=== PATIENT | female | born 1995 | race Caucasian/White ===

== ENCOUNTER 2023-04-23 19:53 | Inpatient (IN) ==
[2023-04-23] MEDS ORDERED: LIDOCAINE 1% LOCAL 20 ML VIAL INFIL PRN (20:51)
[2023-04-23] MEDS ORDERED: OXYTOCIN 30 UNITS/NSS 30 UNITS/500 ML BAG IV PRN ×2 (20:51→23:12)
[2023-04-23] MEDS: LACTATED RINGER'S 1,000 ML IV PRN ×2 (21:15→22:30)
[2023-04-23] MEDS ORDERED: SODIUM CHLORIDE 0.9% 250 ML IV PRN (21:37)
[2023-04-23] MEDS ORDERED: fentaNYL citrate PF 100 MCG/2 ML VIAL ONE (21:49)
[2023-04-23] MEDS ORDERED: ePHEDrine sulfate 50 MG/ML AMP ONE (21:49)
[2023-04-23] MEDS ORDERED: SODIUM CHLORIDE 0.9% PF INJ 10 ML VIAL ONE (21:50)
[2023-04-23] MEDS ORDERED: fentANYL 2 MCG/ML BUPIVacaine 0.125%-NSS 100ML BAG ONE (21:50)
[2023-04-23] MEDS ORDERED: LIDOCAINE 2%/EPINEPHRINE 1:200,000 20 ML PF ONE (21:50)
[2023-04-23] MEDS ORDERED: BUPIVACAINE 0.25% PF 30 ML VIAL ONE (21:50)
[2023-04-23 21:56] LABS: Hemoglobin 12.2 g/dl (12.0-16.0); Mean Corpuscular Hgb Conc 33.9 g/dL (32.0-36.0); Mean Corpuscular Volume 82.6 fL (80.0-100.0); Mean Platelet Volume 10.8 fL (9.4-12.4); Platelet Count 309 K/uL (130-400); RDW Coefficient of Variation 13.7 % (11.5-14.5); RDW Standard Deviation 40.8 fL (36.4-46.3); Red Blood Count 4.36 M/uL (4.20-5.40); White Blood Count 10.66 K/ul (4.8-10.8)
[2023-04-23] MEDS ORDERED: BUPIVACAINE 0.25% PF 30 ML VIAL EPI STA (22:07)
[2023-04-23] MEDS ORDERED: SODIUM CHLORIDE 0.9% PF INJ 10 ML VIAL EPI STA (22:07)
[2023-04-23] MEDS ORDERED: LIDOCAINE 2%/EPINEPHRINE 1:200,000 20 ML PF EPI STA (22:07)
[2023-04-23] MEDS ORDERED: LIDOCAINE 2% MPF LOCAL 5 ML VIAL EPI PRN (22:07)
[2023-04-23] MEDS ORDERED: NALBUPHINE HCL 5 MG in SYRINGE 0 ML IV PRN (22:07)
[2023-04-23] MEDS ORDERED: ePHEDrine sulfate 50 MG/ML AMP IV PRN (22:07)
[2023-04-23] MEDS ORDERED: fentANYL 2 MCG/ML BUPIVacaine 0.125%-NSS 100ML BAG EPI PRN (22:07)
[2023-04-23] MEDS ORDERED: SODIUM CHLORIDE 0.9% PF INJ 10 ML VIAL EPI PRN (22:07)
[2023-04-23] MEDS ORDERED: BUPIVACAINE 0.25% PF 30 ML VIAL EPI PRN (22:07)
[2023-04-23] MEDS ORDERED: fentaNYL citrate PF 100 MCG/2 ML VIAL EPI PRN (22:07)
[2023-04-23] MEDS ORDERED: NALOXONE HCL 0.4 MG/1 ML VIAL/CARP IV PRN (22:07)
[2023-04-23] MEDS ORDERED: ROPIVACAINE 0.5% PF 5 MG/ML 20 ML VIAL EPI PRN (22:07)
[2023-04-23] MEDS ORDERED: fentaNYL citrate PF 100 MCG/2 ML VIAL EPI STA (22:07)
[2023-04-23] MEDS ORDERED: diphenhydrAMINE 50 MG/ML VIAL IV PRN (22:07)
[2023-04-23] MEDS ORDERED: NALOXONE HCL 1 MG in SODIUM CHLORIDE 0.9% 1,000 ML IV PRN (22:07)
--- NOTE | 2023-04-23 22:07 | Anesthesiology Consultation ---
Date of Service April 23, 2023 Assessment & Plan (1) Encounter for pre-operative examination: Chart Review Chart Review: Patient NOT seen in Pre Admission Testing and Acceptable Risk for Labor Epidural Consults Requested none History Height/Weight Height: 5 ft Weight: 106.141 kg Allergies Allergy/AdvReac Type Severity Reaction Status Date / Time lamotrigine [From Lamictal] Allergy Intermediate FULL BODY Verified 09/09/22 00:54 RASH pollen extracts Allergy Intermediate SNEEZING, Verified 09/09/22 00:54 CONGESTION Medications Home Medications Medication Instructions Recorded Confirmed Last Taken No Known Home Medications 09/09/22 09/09/22 Unknown Active Medications Generic Name Dose Route Start Last Admin Trade Name Freq PRN Reason Stop Dose Admin Lactated Ringer's 1,000 mls @ 125 mls/hr 04/23/23 20:51 04/23/23 21:15 Lr IV 04/25/23 20:50 999 mls/hr .Q8H PRN Administration L&D Protocol Protocol Past Medical History Medical History Social History Smoking Status: Current every day smoker Do You Dip or Chew Tobacco: No Hx Alcohol Use: No Hx Substance Use: No substance use type: does not use Physical Exam Vital Signs Last Vital Signs Temp 99.0 F 04/23/23 21:20 Pulse 106 H 04/23/23 20:04 Resp 18 04/23/23 21:20 BP 113/67 04/23/23 20:04 Testing Laboratory Results 04/23/23 21:11
[2023-04-24] MEDS ORDERED: ACETAMINOPHEN 500 MG TAB PO PRN (00:26)
[2023-04-24] MEDS ORDERED: NURSING L&D Epidural Breakthrough Pain Update ONE ×2 (00:43→05:04)
--- NOTE | 2023-04-24 01:58 | Anesthesia Procedure Note ---
Date of Service April 24, 2023 Anesthesia Epidural Re-Dose Vital Signs Temp Pulse Resp BP Pulse Ox 98.6 F 95 H 18 127/77 97 04/24/23 01:30 04/24/23 01:54 04/24/23 01:30 04/24/23 01:54 04/24/23 01:54 Notes Pain Intensity: 5 Dilatation (cm): 6.5 Effacement (%): 80 Called by nursing to evaluate epidural as the patient is having increased pain. The epidural was re-dosed with the following medications (all medications via epidural route) after negative aspiration of the epidural catheter for CSF/HEME. Bupivacaine (8ml) 0.125% After Epidural Re-Dose Mental Status: alert / awake / arousable Pain: improving with treatment Airway Patency, RR, SpO2: stable & adequate BP & HR: stable & adequate
--- NOTE | 2023-04-24 04:04 | Anesthesia Procedure Note ---
Date of Service April 24, 2023 Anesthesia Epidural Re-Dose Vital Signs Temp Pulse Resp BP Pulse Ox 98.6 F 90 18 146/88 H 95 04/24/23 01:30 04/24/23 03:59 04/24/23 03:30 04/24/23 03:54 04/24/23 03:59 Notes Pain Intensity: 5 Dilatation (cm): 6.5 Effacement (%): 80 Called by nursing to evaluate epidural as the patient is having increased pain. pain left sided, catheter inspected and appeaars intact, pulled out 1 cm The epidural was re-dosed with the following medications (all medications via epidural route) after negative aspiration of the epidural catheter for CSF/HEME. 2% Lidocaine with epinephrine (6ml) + 100 mcg fentanyl via epidural After Epidural Re-Dose Mental Status: alert / awake / arousable Pain: improving with treatment (patient relaxed after re-dose states pressure only in back now, no upper abdominal pain, abdomen absent peritoneal signs) Airway Patency, RR, SpO2: stable & adequate BP & HR: stable & adequate
[2023-04-24] MEDS: LACTATED RINGER'S 1,000 ML IV PRN (06:06)
[2023-04-24] MEDS ORDERED: ACETAMINOPHEN 325 MG TAB PO PRN (06:56)
[2023-04-24] MEDS ORDERED: ACETAMINOPHEN W/CODEINE #3 1 TAB PO PRN (06:56)
[2023-04-24] MEDS ORDERED: oxyCODONE/ACETAMINOPHEN 5mg/325mg TAB PO PRN (06:56)
[2023-04-24] MEDS ORDERED: DIPHTHERIA/TETANUS/PERTUSSIS Vaccine (Tdap, Age 7+yrs) 0.5mL SYR/VL IM ONE (06:56)
[2023-04-24] MEDS ORDERED: bisacodyL 10 MG SUPP PR PRN (06:56)
[2023-04-24] MEDS ORDERED: OXYTOCIN 30 UNITS/NSS 30 UNITS/500 ML BAG IV PRN (06:56)
[2023-04-24] MEDS ORDERED: BENZOCAINE 20% SPRY 85 APPLN/85 GM CAN EXT PRN (06:56)
[2023-04-24] MEDS ORDERED: HYDROCORTISONE ACETATE 25 MG SUPP PR PRN (06:56)
--- NOTE | 2023-04-24 07:04 | Delivery Summary ---
Vaginal Delivery Summary Date of Service April 24, 2023 Vaginal Delivery Summary Patient has been followed in our office for care and delivery. has been well dated with a first trimester ultrasound. Patient was admitted in active labor cervix was 4+ centimeters dilated and 100% effaced. Patient was admitted at 37 weeks 1 day ruptured membranes were present at the time of admission. Patient contracted on her own. Received epidural for pain control. After the epidural she was augmented with IV Pitocin. She went to full dilatation and then about 2 or 3 pushes pushed out a live male over an intact perineum. was delivered via direct occiput anterior position. was suctioned through the mouth and the nose. Body was delivered without difficulty. Cord was allowed to pulse for 1 minute. First-degree laceration of the perineum was repaired with a running 2-0 Vicryl. Estimated blood loss was 100 mL. Patient tolerated the delivery well.
[2023-04-24] MEDS: IBUPROFEN 600 MG TAB PO PRN ×3 (07:25→20:04)
[2023-04-24] MEDS: DOCUSATE SODIUM 100 MG CAP PO SCH ×2 (07:25→20:04)
[2023-04-24] MEDS: PRENATAL VITAMIN 1 TAB PO SCH (07:25)
--- NOTE | 2023-04-24 07:28 | Anesthesia Procedure Note ---
Date of Service April 24, 2023 Anesthesia Post Epidural Note Vital Signs Vital Signs: Temp Pulse Resp BP Pulse Ox 36.7 C 91 H 20 122/67 80 L 04/24/23 07:00 04/24/23 07:24 04/24/23 07:00 04/24/23 07:24 04/24/23 06:44 Pain Intensity Perineal: Pain Intensity: 2 Notes Mental Status: alert / awake / arousable and participated in evaluation Nausea / Vomiting: adequately controlled Pain: adequately controlled Airway Patency, RR, SpO2: stable & adequate BP & HR: stable & adequate Hydration State: stable & adequate Neuraxial Anesthesia: was administered and sensory block is resolving Anesthetic Complications: no major complications apparent Epidural: Removed without complications and With tip intact
[2023-04-25] MEDS: IBUPROFEN 600 MG TAB PO PRN ×2 (02:52→07:43)
[2023-04-25 06:29] LABS: Hematocrit (blood only) 31.2 % (37.0-47.0); Hemoglobin 10.3 g/dl (12.0-16.0); Mean Corpuscular Hemoglobin 27.6 pg (25.0-34.0); Mean Corpuscular Volume 83.6 fL (80.0-100.0); Platelet Count 237 K/uL (130-400); RDW Standard Deviation 42.1 fL (36.4-46.3); Red Blood Count 3.73 M/uL (4.20-5.40); White Blood Count 11.78 K/ul (4.8-10.8)
[2023-04-25] MEDS: PRENATAL VITAMIN 1 TAB PO SCH (07:43)
[2023-04-25] MEDS: DOCUSATE SODIUM 100 MG CAP PO SCH (07:43)
--- NOTE | 2023-04-25 08:33 | Obstetrical Progress Note ---
Date of Service April 25, 2023 Assessment & Plan Admission and Anticipated Discharge Date Admission Date: April 23, 2023 Subjective abdomen soft and non tender no calf tenderness ambulating well vaginal bleeding scant to moderate hgb 10.3 Results & Data Vital Signs (Past 12 Hours) Vital Signs Temp Pulse Resp BP Pulse Ox O2 Del Method 04/25/23 07:50 36.6 C 79 18 111/75 98 Room Air 04/25/23 03:20 36.5 C 82 20 130/86 98 Room Air 04/24/23 23:30 36.6 C 83 18 111/76 98 Room Air
[2023-04-25] MEDS ORDERED: bisacodyL 5 MG TABEC PO SCH (20:00)
== END 2023-04-25 12:05 | disposition home or self-care (01) | DRG 807 ==
LOC: OPB 19:53 → 4S1 19:54 → 4E2 04-24 09:47